=== PATIENT | male | born 1985 | race Caucasian/White ===

== ENCOUNTER 2016-11-25 02:27 | Emergency (ER) | payer OTHER ==
[~2016-11-25] VITALS: Ht 177.8 cm; Wt 117.0 kg
[2016-11-25] MEDS ORDERED: WELLTAB40 PO (02:47)
[2016-11-25] MEDS ORDERED: CONC54TA4 (02:47)
[2016-11-25] MEDS ORDERED: DERMABOND TOPICAL SKIN ADHESIVE TOP ONE (03:30)
[2016-11-25] MEDS ORDERED: TETANUS/DIPHTHERIA TOX ADSORB ADULT 0.5ML SYR/VIAL (90714) IM ONE (03:30)
[2016-11-25 03:40] VITALS: BP 115/72
== END 2016-11-25 03:48 | disposition home or self-care (01) ==
LOC: EDBD 02:27 → M ED 03:14
DX: S01.91XA Laceration without foreign body of unspecified part of head, initial encounter (principal); W01.10XA Fall on same level from slipping, tripping and stumbling with subsequent striking against unspecified object, initial encounter; Y92.018 Other place in single-family (private) house as the place of occurrence of the external cause; Y93.89 Activity, other specified; Y99.8 Other external cause status; F90.9 Attention-deficit hyperactivity disorder, unspecified type; Z79.899 Other long term (current) drug therapy